=== PATIENT | female | born 1970 | race Caucasian/White ===

== ENCOUNTER 2017-05-24 08:04 | Emergency (ER) | payer BC ==
[2017-05-24 08:09] VITALS: BMI 27.1
[2017-05-24] MEDS ORDERED: Albuterol 0.083% Inhal Sol (2.5 mg/3 mL) UD INH STA ×2 (08:37→09:47)
[2017-05-24] MEDS ORDERED: Ipratropium 0.02% Inhal Soln (0.5 mg/2.5 ml) UD IH STA ×2 (08:38→09:47)
--- NOTE | 2017-05-24 08:44 | ED PDOC ---
Arrival/HPI - General Chief Complaint: Cough, Cold, Congestion Time Seen by Provider: 05/24/17 08:28 Historian: Patient - History of Present Illness Narrative History of Present Illness (Text): 05/24/17 08:38 A 46 year old female, whose past medical history includes asthma and reactive airway disease, presents to the emergency department with 4 day duration cough with expectoration of green sputum with tussive chest pain. The patient denies fevers, chills, headache, dizziness, chest pain, shortness of breath, dyspnea on exertion, palpitations, peripheral edema, orthopnea, abdominal pain, nausea, vomiting, diarrhea, back pain, neck pain, urinary/bowel changes, sick contacts, or any other complaint. PMD: Dr. Bridget Ariza Time/Duration: Other (4 Days) Symptom Onset: Sudden Symptom Course: Unchanged Activities at Onset: Rest, Light Context: Home Past Medical History - Provider Review Nursing Documentation Reviewed: Yes - Infectious Disease Hx of Infectious Diseases: None - Reproductive Menopause: No - Pulmonary Hx Asthma: Yes - Psychiatric Hx Substance Use: No - Anesthesia Hx Anesthesia: No - Suicidal Assessment Feels Threatened In Home Enviroment: No Family/Social History - Physician Review Nursing Documentation Reviewed: Yes Family/Social History: No Known Family HX Smoking Status: Former Smoker Hx Alcohol Use: No Hx Substance Use: No Allergies/Home Meds Allergies/Adverse Reactions: Allergies No Known Allergies Allergy (Verified 02/26/15 10:40) Home Medications: Home Meds Medication Instructions Recorded Confirmed Albuterol 0.083% [Albuterol 0.083% 2.5 mg NEB PRN PRN MDD 2.5 05/24/17 05/24/17 Inhal Breana (2.5 mg/3 ml) UD] Review of Systems - Physician Review All systems were reviewed & negative as marked: Yes - Review of Systems Constitutional: absent: Fevers, Night Sweats Respiratory: Cough, Sputum. absent: SOB Cardiovascular: absent: Chest Pain, Palpitations, HADDAD, Orthopnea Gastrointestinal: absent: Abdominal Pain, Stool Changes, Diarrhea, Nausea, Vomiting Genitourinary Female: absent: Urine Output Changes Musculoskeletal: absent: Back Pain, Neck Pain Neurological: absent: Headache, Dizziness Physical Exam Vital Signs Reviewed: Yes Vital Signs Temp Pulse Resp Pulse Ox 05/24/17 09:09 81 100 05/24/17 08:08 98.6 F 86 18 94 L Temperature: Afebrile Blood Pressure: Normal Pulse: Regular Respiratory Rate: Normal Appearance: Positive for: Well-Appearing, Non-Toxic, Comfortable Pain Distress: None Mental Status: Positive for: Alert and Oriented X 3 - Systems Exam Head: Present: Atraumatic, Normocephalic Pupils: Present: PERRL Extroacular Muscles: Present: EOMI Conjunctiva: Present: Normal Mouth: Present: Moist Mucous Membranes Pharnyx: Present: Other (Mild oral pharyngeal ingestion) Neck: Present: Normal Range of Motion Respiratory/Chest: Present: Wheezes (Expiratory wheezes more pronounced at the bases) Cardiovascular: Present: Regular Rate and Rhythm, Normal S1, S2. No: Murmurs Abdomen: Present: Normal Bowel Sounds. No: Tenderness, Distention, Peritoneal Signs Back: Present: Normal Inspection Upper Extremity: Present: Normal Inspection. No: Cyanosis, Edema Lower Extremity: Present: Normal Inspection. No: Edema Neurological: Present: GCS=15, CN II-XII Intact, Speech Normal Skin: Present: Warm, Dry, Normal Color. No: Rashes Psychiatric: Present: Alert, Oriented x 3, Normal Insight, Normal Concentration Medical Decision Making ED Course and Treatment: 05/24/17 08:48 Impression: A 46 year old female presents to the emergency department with a complaint of 4 day duration cough with associated chest pain and expectoration of sputum. Plan: -- EKG -- Albuterol, Atrovent, and prednisSONE. -- Reassess and disposition Prior Visits: Notes and results from previous visits were reviewed. Patient was last seen in the emergency department on 02/26/15. Patient was seen in the emergency department for left sided chest pain. Patient was discharged home. Progress Notes: EKG: Ordered, reviewed, and independently interpreted the EKG. Rate : 83 BPM Rhythm : NSR Interpretation : No arrhythmogenic intervals. No ischemic ST-T segments. 05/24/17 11:00 s/p ambulation through emergency department pt w/out tachycardia/hypoxia nor excessive tachypnea pt feel sbetter and wants to go home. - RAD Interpretation Radiology Orders: 05/24/17 09:13 CHEST TWO VIEWS (PA/LAT) [RAD] Stat - EKG Interpretation Interpreted by ED Physician: Yes Type: 12 lead EKG - Medication Orders Current Medication Orders: Discontinued Medications Albuterol Sulfate (Albuterol 0.083% Inhal Breana (2.5 Mg/3 Ml) Ud) 2.5 mg INH STAT STA Stop: 05/24/17 08:38 Last Admin: 05/24/17 08:48 Dose: 2.5 mg Albuterol Sulfate (Albuterol 0.083% Inhal Breana (2.5 Mg/3 Ml) Ud) 2.5 mg INH STAT STA Stop: 05/24/17 09:48 Last Admin: 05/24/17 10:00 Dose: 2.5 mg Azithromycin (Zithromax) 500 mg PO STAT STA PRN Reason: Protocol Stop: 05/24/17 08:56 Last Admin: 05/24/17 09:26 Dose: 500 mg Sodium Chloride (Sodium Chloride 0.9%) 1,000 mls @ 999 mls/hr IV .Q1H1M STA Stop: 05/24/17 09:56 Last Admin: 05/24/17 09:19 Dose: 999 mls/hr eMAR Start Stop Document 05/24/17 09:19 GMI (Rec: 05/24/17 09:20 GMI [id number]) Intravenous Solution Start Date 05/24/17 Start Time 09:20 End Date 05/24/17 End time 10:57 Total Infusion Time 97 Ipratropium [place] (Atrovent) 0.5 mg IH STAT STA Stop: 05/24/17 08:39 Last Admin: 05/24/17 08:48 Dose: 0.5 mg Ipratropium [place] (Atrovent) 0.5 mg IH STAT STA Stop: 05/24/17 09:48 Last Admin: 05/24/17 10:00 Dose: 0.5 mg Prednisone (Prednisone Tab) 60 mg PO STAT ONE Stop: 05/24/17 08:38 Last Admin: 05/24/17 08:47 Dose: 60 mg Disposition/Present on Arrival - Present on Arrival Any Indicators Present on Arrival: No History of DVT/PE: No History of Uncontrolled Diabetes: No Urinary Catheter: No History of Decub. Ulcer: No History Surgical Site Infection Following: None - Disposition Have Diagnosis and Disposition been Completed?: Yes Diagnosis: Asthma exacerbation, Bronchitis Disposition: HOME/ ROUTINE Disposition Time: 11:02 Patient Plan: Discharge Condition: IMPROVED Print Language: INDONESIAN Additional Instructions: Please drink plots of water, herbal teas such as andrew w/ freh lemon and ppermint. Avoid all dairy . TAKE MEDICINES PRESCRIBED . Prescriptions: Albuterol 0.083% [Albuterol 0.083% Inhal Breana (2.5 mg/3 ml) UD] 2.5 mg IH Q4 PRN 7 Days neb PRN Reason: Wheezing Albuterol HFA [Ventolin HFA 90 mcg/actuation (8 g)] 200 puff IH Q4 PRN 7 Days # 1 puff PRN Reason: Cough Azithromycin 250 mg PO DAILY 4 Days #4 tablet Benzonatate [Tessalon Perles] 100 mg PO TID PRN #21 sgl PRN Reason: Cough Prednisone [Deltasone] 40 mg PO DAILY #8 tablet Referrals: Zachariah Ariza MD [Primary Care Provider] - Follow up with primary Forms: [employer] ([place])
[2017-05-24] MEDS ORDERED: Sodium Chloride 0.9% 1,000 ML IV STA (08:56)
--- NOTE | 2017-05-24 10:51 | RAD ---
HISTORY: cough COMPARISON: 02/26/2015 TECHNIQUE: Chest PA and lateral FINDINGS: LUNGS: No active pulmonary disease. PLEURA: No significant pleural effusion identified. No pneumothorax apparent. CARDIOVASCULAR: Normal. OSSEOUS STRUCTURES: No significant abnormalities. VISUALIZED UPPER ABDOMEN: Normal. OTHER FINDINGS: None. IMPRESSION: No active disease.
[2017-05-24 11:16] VITALS: TEMP 98
[2017-05-24 11:29] VITALS: BP 129/71; PULSE 79; RESP 19; O2SAT 99
--- NOTE | 2017-05-24 23:14 | CARD ---
APPROVED REPORT EKG Measurement Heart [id number] MD [id number] <Conclusion> Normal sinus rhythm Normal ECG
== END 2017-05-24 11:29 | disposition home or self-care (01) ==
LOC: ED 08:04
DX: J45.901 Unspecified asthma with (acute) exacerbation (principal); Z87.891 Personal history of nicotine dependence
CPT/HCPCS: 71020; 93005; 96360; 96361; 99284; J7040